=== PATIENT | female | born 2000 | race Caucasian/White ===

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

== ENCOUNTER 2020-07-28 11:24 | Emergency (ER) | payer MEDICAID ==
[~2020-07-28] VITALS: Ht 154.9 cm; Wt 70.0 kg
[2020-07-28 11:33] VITALS: BP 111/71; Ht 154.9 cm; Wt 70.0 kg
[2020-07-28 12:06] LABS: BASOPHILS 0.1 % (0-2); CALC OSMOLALITY 277 mosm/kg (275-300); CALCIUM 9.3 mg/dL (8.5-10.1); CARBON DIOXIDE 22.8 mmol/L (21.0-32.0); CHLORIDE - SERUM 106 mmol/L (98-107); CREATININE - SERUM 0.9 mg/dL (0.6-1.3); EOSINOPHILS 2.2 % (0-7); GLUCOSE 105 mg/dL (74-106); HEMATOCRIT 41.7 % (36.0-48.0); HEMOGLOBIN 14.5 g/dL (12-16); IMMATURE GRANULOCYTES 0.1 % (0-5); LYMPHOCYTES 37.1 % (15-50); MCH 30.6 pg (26.0-34.0); MCHC 34.8 g/dL (31.0-37.0); MEAN PLATELET VOLUME 9.7 fL (7.4-10.4); MONOCYTES 5.8 % (2-11); NEUTROPHIL ABS# 3.68 10x3/uL (1.56-6.13); NEUTROPHILS 54.7 % (40-80); PLATELET COUNT 290 10x3/uL (130-400); POTASSIUM - SERUM 3.9 mmol/L (3.5-5.1); RBC 4.74 10x6/uL (4.00-5.40); RDW 12.4 % (11.5-14.5); SODIUM 139 mmol/L (136-145); UREA NITROGEN 12 mg/dL (7-18); WBC 6.7 10x3/uL (4.8-10.8); eGFR NON AFRICAN AMERICAN 85 mL/min (90-120)
[2020-07-28 12:13] LABS: ALKALINE PHOSPHATASE 58 U/L (30-120); ALT (SGPT) 29 U/L (10-68); AMYLASE - SERUM 56 U/L (25-115); BILIRUBIN - TOTAL 0.35 mg/dL (0.2-1.3); LIPASE 92 U/L (73-393); PROTEIN - SERUM 7.7 g/dL (6.4-8.2)
[2020-07-28 12:34] LABS: TROPONIN-I < 0.017 ng/mL (0.000-0.060)
[2020-07-28 12:39] LABS: BILIRUBIN NEGATIVE (NEGATIVE); KETONE NEGATIVE (NEGATIVE); NITRITE NEGATIVE (NEGATIVE); UROBILINOGEN NORMAL mg/dL (< 2)
[2020-07-28 12:40] LABS: BACTERIA MODERATE HPF (NONE SEEN); WHITE CELLS - URINE 0-5 HPF (0-4)
[2020-07-28 12:41] LABS: HCG URINE NEGATIVE (NEGATIVE)
[2020-07-28] MEDS ORDERED: BENTYL 20 MG TA20 MG PO (15:00)
[2020-07-28] MEDS ORDERED: ZOFRAN ODT4 MG/UDTAB PO (15:00)
== END 2020-07-28 15:06 | disposition home or self-care (01) ==
LOC: D.ER 11:24
PROVIDERS: Emergency Medicine
DX: A08.4 Viral intestinal infection, unspecified (principal)

== ENCOUNTER → 2020-10-28 16:05 | Outpatient (CLI) | payer MEDICAID ==
[2020-07-28 11:33] VITALS: BMI 29.1
[~2020-10-28 16:05] MED LIST changes: +BENTYL 20 MG TA20 MG PO; +ZOFRAN ODT4 MG/UDTAB PO
== END | disposition home or self-care (01) ==
LOC: D.RAD 16:05
PROVIDERS: ATTEND Pediatrics
DX: M25.522 Pain in left elbow (principal)